=== PATIENT | female | born 2000 | race African-American/Black ===

== ENCOUNTER 2022-01-31 16:48 | Emergency (ER) | payer MEDICAID ==
[~2022-01-31] VITALS: Ht 165.1 cm; Wt 50.0 kg
[2022-01-31 16:59] VITALS: TEMP 98.9
[2022-01-31 17:58] LABS: COLLECTION METHOD CLEAN CATCH
[2022-01-31 18:01] LABS: BASO # 0.1 K/mm3 (0.0-0.2); BASO % 0.7 % (0.0-2.0); EOS # 0.2 K/mm3 (0.0-0.7); EOS % 2.8 % (0.0-4.0); GRAN # 4.2 K/mm3 (1.4-6.5); GRAN % 61.6 % (42.2-75.2); HEMATOCRIT 35.6 % (37.0-47.0); HEMOGLOBIN 12.4 g/dl (12.5-16.0); LYMPH # 1.7 K/mm3 (1.2-3.4); LYMPH % 24.3 % (20.0-51.0); MEAN CELL VOLUME 91 fl (80.0-100.0); MEAN CORPUSCULAR HEMOGLOBIN 32 pg (27-31); MEAN CORPUSCULAR HGB CONC 35 g/dl (33.0-37.0); MONO # 0.7 K/mm3 (0.1-0.6); MONO % 10.5 % (1.7-9.3); PLATELET COUNT 322 K/mm3 (130-400); RED BLOOD COUNT 3.92 M/mm3 (4.10-5.30); REDCELL DISTRIBUTION WIDTH-CV 11.7 % (11.5-14.5)
[2022-01-31 18:02] LABS: URINE APPEARANCE Clear (CLEAR/HAZY); URINE COLOR Yellow (YELLOW)
[2022-01-31 18:03] LABS: PH 6.5 (5.0-8.5); URINE BLOOD 2+ (NEGATIVE); URINE GLUCOSE Negative (NEGATIVE); URINE KETONE TRACE (NEGATIVE); URINE NITRATE Negative (NEGATIVE); URINE PROTEIN(semi-quant) Negative (NEGATIVE); URINE UROBILINOGEN 0.2 E.U/dL (0.2-1.0)
[2022-01-31 18:06] LABS: MUCOUS Present (NOT PRESENT); SQUAMOUS EPITHELIAL 0-2 /hpf (0-10); URINE BACTERIA None Seen /hpf (NONE SEEN); URINE RBC 20-50 /hpf (0-2)
[2022-01-31 18:20] LABS: ALBUMIN 4.1 gm/dL (3.5-5.0); BILIRUBIN,TOTAL 0.3 mg/dL (0.2-1.2); CALCIUM 9.6 mg/dL (8.4-10.2); CREATININE, serum 0.8 mg/dL (0.57-1.11); POTASSIUM 3.9 mmol/L (3.5-4.5); TOTAL PROTEIN 7.9 gm/dL (6.2-8.1)
[2022-01-31 20:05] VITALS: BP 106/62; PULSE 97
== END 2022-01-31 20:05 | disposition home or self-care (01) ==
LOC: COL.ER 16:48
PROVIDERS: Nurse Practitioner
DX: O20.0 Threatened abortion (principal); Z3A.01 Less than 8 weeks gestation of pregnancy; Z28.310 Unvaccinated for COVID-19
CPT/HCPCS: J7030

== ENCOUNTER → 2022-02-01 | Outpatient (CLI) | payer MEDICAID | LOC: COL.RAD 08:28 | DX: O20.0 Threatened abortion (principal) ==

== ENCOUNTER 2022-10-07 16:52 | Outpatient (CLI) | payer MEDICAID ==
[~2022-10-07] VITALS: Ht 165.1 cm; Wt 65.5 kg
[~2022-10-07 16:52] MED LIST: ZOFRAN ODT4 MG PO
--- NOTE | 2022-10-07 17:10 | NUR ---
Pt arrived on unit ambulatory and with concerns for contractions. Pt reports contractions since last night with them worsening this afternoon with increased vaginal discharge but denies any vaginal bleeding and reports normal movement. EFM and toco monitors started. Vital signs WNL. SVE by this RN closed/thick/high with negative amnio-trace. Dr. Mejia on the unit and notified of pt's arrival. See physician notification for details.
[2022-10-07] MEDS ORDERED: PRENATAL (17:29)
[2022-10-07 17:45] VITALS: BP 99/64; PULSE 108; TEMP 98.8
[2022-10-07 18:15] VITALS: BP 104/61; PULSE 90
[2022-10-07 18:30] VITALS: BP 99/55; PULSE 88
[2022-10-07 18:45] VITALS: BP 101/59; PULSE 92
--- NOTE | 2022-10-07 18:45 | NUR ---
Pt taken off monitors at this time, IV removed by this RN, 2x2 and bandaid applied with slight pressure. Pt informed to go ahead and get dressed and RN will return shortly with dismissal paperwork.
--- NOTE | 2022-10-07 19:00 | NUR ---
Dismissal instructions given to pt, opportunity for questions given, pt verbalized understanding and voices no questions at this time. Pt ambulatory off unit with spouse and child at this time.
== END 2022-10-07 19:00 | disposition home or self-care (01) ==
LOC: LDRO 16:52
DX: Z34.92 Encounter for supervision of normal pregnancy, unspecified, second trimester (principal); Z3A.26 26 weeks gestation of pregnancy
CPT/HCPCS: J7120

== ENCOUNTER 2022-10-25 15:23 | Emergency (ER) | payer MEDICAID ==
[~2022-10-25] VITALS: Ht 165.1 cm; Wt 66.8 kg
[~2022-10-25 15:23] MED LIST changes: +PRENATAL
[2022-10-25 15:44] VITALS: BP 112/69; TEMP 98.7
[2022-10-25 16:07] LABS: HEMOGLOBIN 11.8 g/dl (12.5-16.0); MEAN CELL VOLUME 96 fl (80.0-100.0); MEAN CORPUSCULAR HEMOGLOBIN 33 pg (27-31); MEAN CORPUSCULAR HGB CONC 35 g/dl (33.0-37.0); MEAN PLATELET VOLUME 9.6 fl (7.4-10.4); PLATELET COUNT 210 K/mm3 (130-400); RED BLOOD COUNT 3.56 M/mm3 (4.10-5.30); REDCELL DISTRIBUTION WIDTH-CV 12.8 % (11.5-14.5)
[2022-10-25 16:09] LABS: HEMATOCRIT 34.1 % (37.0-47.0)
[2022-10-25 16:22] LABS: ALBUMIN 2.8 gm/dL (3.5-5.0); BILIRUBIN,TOTAL 0.3 mg/dL (0.2-1.2); CALCIUM 9.3 mg/dL (8.4-10.2); CREATININE, serum 0.59 mg/dL (0.57-1.11); POTASSIUM 3.9 mmol/L (3.5-4.5); TOTAL PROTEIN 7.1 gm/dL (6.2-8.1)
[2022-10-25] MEDS ORDERED: REGLAN 10MG10 MG/TAB PO (17:12)
[2022-10-25 17:19] LABS: BAND 4 % (0-10); EOSINOPHIL 2 % (0-4); LYMPHOCYTE 19 % (20.0-51.0); NEUTROPHILS 65 % (42.0-75.2); PLATELET ESTIMATE INCREASED (NORMAL)
[2022-10-25 17:28] VITALS: PULSE 82
== END 2022-10-25 17:29 | disposition home or self-care (01) ==
LOC: COL.ER 15:23
PROVIDERS: Emergency Medicine
DX: O21.2 Late vomiting of pregnancy (principal); O99.513 Diseases of the respiratory system complicating pregnancy, third trimester; R05.9 Cough, unspecified; Z3A.28 28 weeks gestation of pregnancy; Z28.310 Unvaccinated for COVID-19; Z20.822 Contact with and (suspected) exposure to COVID-19
CPT/HCPCS: J2765; J7030

== ENCOUNTER 2024-02-15 12:16 | Inpatient (IN) | payer MEDICAID ==
[2024-02-15] VITALS (16 sets, daily range): BP systolic 90–114; BP diastolic 51–544; PULSE 75–103; TEMP 98.7–99
[~2024-02-15] VITALS: Ht 165.1 cm; Wt 73.2 kg
[~2024-02-15 12:16] MED LIST changes: +MOTRIN 800800 MG/TAB PO; +PERCOCET 325 MG1 TA2 PO; +REGLAN 10MG10 MG/TAB PO
--- NOTE | 2024-02-15 12:35 | NUR ---
1235- Pt arrives on unit with spouse, Richar, ambulatory, with concerns that she was checked in the office by Dr Mejia today and her membranes were swept without her consent. She complains of spotting and contractions since the exam. Pt oriented to room and into bathroom to change into gown. Once in bed, EFM and TOCO on and adjusted to tracing. VSS. 1245- This RN sits at bedside to get more information about the exam by Dr Mejia. Pt reports she consented to the vaginal exam but then it became very "aggressive and painful". States, "it felt like she was going in and out". Pt also reports feeling Dr Durham's hand "sweeping back and forth." Pt felt the exam was excessively long and afterwards felt "violated." Pt also reports clear fluid and blood on the exam table after the exam. Pt reports that currently she had a trace of blood on her peripad and a small amount when she wiped after voiding here at the hospital. She states she had some contractions yesterday but denied them today until after vaginal exam by Dr Mejia. Pt asks if there is a way to tell if Dr Mejia stripped her membranes. This RN replies that there is not a way to confirm without asking Dr Mejia. Offered to contact Dr Mejia so they can discuss this and Pt verbalizes that she is unsure if she wants Dr Mjeia at bedside or if she wants her to care for her any further. Pt tearful, provided tissues. Pt's reports he was at bedside for exam and agrees with Pts discription of events. This RN asks if Pt would agree to allow this RN to do SVE to check dilation and see if water was broken, Pt agreed. SVE 5/80/-3, posterior, head ballotable and no fluid noted with exam. Pt tolerated well and reports this RN's exam was "nothing like hers" (Dr Mejia). Discussed plan to speak to our community living specialist, Pt agrees with plan. Pt provided water for oral hydration, call light within reach.
--- NOTE | 2024-02-15 13:57 | NUR ---
1357- Dr Mejia at nurses station where this RN, Shanique Ortiz, and Andressa Lo, RN are sitting. MD states she read my nurses note and walks towards room. This RN stops MD and states Pt does not want you at bedside. MD states she knows, she read the note but is going in to talk to her. This RN follows behind. MD sits on end of bed, rubbing Pt's belly, states she did not strip her membranes in the office. States she was too high to strip her membranes but needed to get a good check since she was 5cm. Pt and very quiet. MD discusses options for staying vs going home. Pt verbalizes that she is very hungry. MD okay with Pt having food at this time and rechecking SVE after eating. MD states she will follow Pt through delivery if she stays. MD out of room. This RN appoligizes to Pt and spouse that Dr Mejia came into room against their wishes. Pt states it was uncomfortable but gives no further concerns. Pt needs to void. This RN encourages Pt and to talk and keep me updated on their wishes for admission vs discharge. Pt verbalizes understanding.
--- NOTE | 2024-02-15 15:50 | NUR ---
Shanique Ortiz at bedside to answer questions and offer support to Pt.
[2024-02-15] MEDS ORDERED: LR & Oxytocin 500 ML IV SCH ×2 (16:15→21:30)
[2024-02-15] MEDS ORDERED: LR 1,000 ML IV SCH (16:15)
[2024-02-15 16:41] LABS: BASO % 0.3 % (0.0-2.0); EOS # 0.1 K/mm3 (0.0-0.7); EOS % 1.5 % (0.0-4.0); GRAN # 6.6 K/mm3 (1.4-6.5); GRAN % 74.3 % (42.2-75.2); LYMPH # 1.4 K/mm3 (1.2-3.4); LYMPH % 15.6 % (20.0-51.0); MEAN CELL VOLUME 86 fl (80.0-100.0); MEAN CORPUSCULAR HEMOGLOBIN 28 pg (27-31); MEAN CORPUSCULAR HGB CONC 32 g/dl (33.0-37.0); MEAN PLATELET VOLUME 10.4 fl (7.4-10.4); MONO # 0.7 K/mm3 (0.1-0.6); MONO % 7.9 % (1.7-9.3); PLATELET COUNT 241 K/mm3 (130-400); RED BLOOD COUNT 3.63 M/mm3 (4.10-5.30); REDCELL DISTRIBUTION WIDTH-CV 13.4 % (11.5-14.5)
[2024-02-15 16:50] LABS: HEMATOCRIT 31.1 % (37.0-47.0)
--- NOTE | 2024-02-15 17:15 | NUR ---
1654- Dr Diez and this RN at bedside. discusses labor process, informed consent for TOLAC, questions encouraged and answered. 1701- SVE performed by Dr Diez after verbal consent obtained. Pt tolerated well.
--- NOTE | 2024-02-15 18:40 | NUR ---
184- DR OTERO TO BEDSIDE. DISCUSSES SVE TO CHECK PROGRESS OF LABOR AND POSSIBLE AROM OF MEMBRANES. PT IS AGREEABLE WITH SVE AND IS ASSISTED OFF BIRTHING BALL AND BACK TO BED FOR EXAM. 1841- SVE BY DR OTERO /-2. STATES SHE WOULD LIKE TO BREAK PT'S WATER, BUT PT WOULD LIKE TO DISCUSS THIS WITH HER FIRST. 1844- DR OTERO DISCUSSES AROM AND POSSIBLE PITOCIN ADMINISTRATION WITH PT AND HER . QUESTIONS ANSWERED. PT IS AGREEABLE WITH ATTEMPTING AROM AT THIS TIME. 1847- DR OTERO ATTEMPTS AROM DURING CONTRACTION, BUT IS ANABLE TO GET THROUGH AMNIOTIC SAC WITHOUT CAUSING PT INCREASED DISCOMFORT. DR OTERO SUGGESTS AUGMENTATION WITH PITOCIN AT THIS TIME SINCE SHE IS UNABLE TO RUPTURE BAG OF ABDULLAHI. PT IS AGREEABLE AFTER SHE AMBULATES. 1854- WIRELESS MONITOR CONNECTED FOR EFM TRACING. PT ASSISTED UP IN BED. SHE WISHES TO AMBULATE WITH WIRELESS MONITOR PRIOR TO STARTING PITOCIN TO SEE IF SHE CAN GET HER CONTRACTIONS STRONGER AND CLOSER TOGETHER. 1899- PT UP AMBULATING IN HALLWAY. DR OTERO AT DESK AND STATES PITOCIN AUGMENTATION MAY BE STARTED PER PROTOCOL WHEN PT IS READY. 1919- PT STILL AMBULATING. 1929- PT UP IN ROOM. STATES HER CONTRACTIONS ARE MUCH CLOSER TOGETHER AND STARTING TO GET MORE PAINFUL. SHE WOULD STILL LIKE TO BE UP AMBULATING BUT IS AGREEABLE TO A BLOOD PRESSURE. PRECAUTIONS GIVEN FOR PT TO CALL OUT WITH FEELINGS OF PRESSURE OR URGE TO BEAR DOWN AND SHE VERBALIZES UNDERSTANDING.
--- NOTE | 2024-02-15 20:07 | NUR ---
2007- NURSE TO BEDSIDE. PT STILL UP AMBULATING IN ROOM. PT STATES SHE IS GETTING MORE UNCOMFORTABLE BUT DENIES PRESSURE. SHE WOULD LIKE TO CONTINUE AMBULATION ON THE WIRELESS MONITOR SHE FEELS THIS IS WORKING WELL FOR HER AT THIS TIME.
--- NOTE | 2024-02-15 20:20 | NUR ---
2019- DR OTERO CALLS AND IS UPDATED THAT PT IT UP AMBULATING ON WIRELESS MONITOR STILL. UPDATED THAT PT DOES NOT WISH PITOCIN TO START UNTIL SHE IS DONE AMBULATING AND THE PT REPORTS HER CONTRACTIONS ARE STRONGER THAN BEFORE. TOCO TRACING SHOWS CONTRACTIONS EVERY 2 MIN. PLAN IS TO RECHECK CERVIX AT 2100.
--- NOTE | 2024-02-15 20:40 | NUR ---
2039- PT WISHES TO AMBULATE IN HALLS AGAIN. NURSE ACCOMPANIES HER. DISCUSS PLAN OF CARE FOR SVE AT 2099. PT IS AGREEABLE WITH THIS. ALSO DISCUSSED SERIOUSLY CONSIDERING PITOCIN ADMINISTRATION IF PT CERVIX IS UNCHANGED AT THAT TIME. PT IS WILLING TO CONSIDER. DISCUSSED PT'S PLAN FOR EPIDURAL AND PT STATES SHE HAS AGREED TO DO THIS BUT SHE IS STILL UNSURE WHEN SHE WILL BE READY.
--- NOTE | 2024-02-15 21:05 | NUR ---
2104- PT BACK TO BED FOR EXAM. SHE GIVES CONSENT. SVE BY THIS NURSE UNCHANGED AT /-2. DISCUSS PLAN OF CARE WITH PT INCLUDING ADMINISTRATION OF PITOCIN AND EPIDURAL. PT STATES SHE IS READY TO PROCEED WITH BOTH OF THESE PLANS OF CARE. 2115- DR OTERO CALLED AND UPDATED ON PT CURRENT SVE WITH NO CHANGE AND PT AGREEING TO PITOCIN AUGMENTATION AND EPIDURAL AT THIS TIME. NO NEW ORDERS AT THIS TIME. 2117- JOSE ANGEL MAY CALLED FOR EPIDURAL.
--- NOTE | 2024-02-15 21:25 | NUR ---
2124- PITOCIN AUGMENTATION STARTED PER PROTOCOL AT 2MUNITS. PROCESS DISCUSSED WITH PT AND SHE VERBALIZES UNDERSTANDING. 2134- JOSE ANGEL MAY HERE FOR EPIDURAL PLACEMENT. PT ASSISTED TO POSITION SITTING ON EDGE OF BED. JOSE ANGEL OBTAINS VERBAL INFORMED CONSENT FOR PROCEDURE. 2140- EPIDURAL SINGLE SHOT BY JOSE ANGEL MAY. PT TOLERATED WELL. 2147- EPIDURAL PROCEDURE COMPLETE. PT ASSISTED BACK TO BED IN LEFT LATERAL POSITION. MONITORS ADJUSTED. PITOCIN AUGMENTATION NOT INCREASED DURING EPIDURAL PLACEMENT. 2199- PT REPORTS INCREASED COMFORT LEVEL. PITOCIN INFUSION INCREASED TO 4MUNITS.
[2024-02-15] MEDS ORDERED: ROPivacaine PF 0.2% 200 ML IV ONE (21:31)
[2024-02-15] MEDS ORDERED: diphenhydrAMINE 25 MG CAP PO PRN (22:15)
[2024-02-15] MEDS ORDERED: Ondansetron 4 MG/2 ML VIAL IV PRN (22:15)
[2024-02-15] MEDS ORDERED: Naloxone 0.4 MG/ML VIAL IV PRN (22:15)
[2024-02-15] MEDS ORDERED: diphenhydrAMINE 50 MG/ML 1 ML VIAL IV PRN (22:15)
[2024-02-15] MEDS ORDERED: ePHEDrine 50 MG/10 ML VIAL IV PRN (22:15)
--- NOTE | 2024-02-15 22:15 | NUR ---
2214- PITOCIN INFUSION INCREASED TO 6MUNITS. PT REPORTS HER RIGHT SIDE IS NOT COMFORTABLE HER LEFT WITH EPIDURAL. WILL TURN TO RIGHT SIDE AND USE CLERK GENERAL OFFICE BUTTON AT [address] PT IS AGREEABLE WITH THIS PLAN. 2230- PITOCIN INFUSION INCREASED TO 8MUNITS. PT REPORTS HER RIGHT SIDE IS STILL NOT COMFORTABLE HER LEFT. PT ASSISTED TO TURN TO RIGHT SIDE AND USE CLERK GENERAL OFFICE BUTTON ON EPIDURAL. PT IS TURNED TO RIGHT SIDE SHE STATES SHE FEELS A GUSH OF FLUID LIKE HER WATER BROKE. AMNITRACE POSITIVE AND CLEAR FLUID PUDDLE ON UNDER BUTT PAD. MONITORS ADJUSTED AND PEANUT BALL PLACED UNDER LEFT LEG.
--- NOTE | 2024-02-15 22:44 | NUR ---
2243- NURSE TO BEDSIDE FOR LATE DECELERATION. PT TURNED TO LEFT LATERAL AND MONITORS ADJUSTED. 2245- LR BOLUS STARTED FOR LATE DECELERATION. 2247- CONSENT OBTAINED FROM PT FOR SVE. SVE BY THIS NURSE . PRESENTING PART SEEMS MORE BALLOTTABLE WITH THIS EXAM AND THERE IS A FOREBAG OF FLUID PROTRUDING FROM CERVIX DESPITE PT HAVING SROM EARLIER. 2299- DR OTERO CALLED AND UPDATED ON EFM LATE DECELERATIONS WITH CORRECTIVE MEASURES. UPDATED ON PT SROM AT 2230 WITH CLEAR FLUID. PT IS BLOCKED AND COMFORTABLE. PITOCIN IS CURRENTLY AT 8MUNITS BUT WILL NOT BE ABLE TO GO UP DUE TO LATE DECELERATIONS. INFORMED THAT HEART RATE IS RECOVERING WITH MINIMAL TO MODERATE VARIABILITY AND INTERMITTENT LATE DECELS. TOCO PATTERN IS COUPLING THEN SPACING OUT. DR OTERO GIVES NO NEW ORDERS AT THIS TIME. 2309- NURSE TO BEDSIDE TO ADJSUT MONITORS. DIFFICULT TO MONITOR CONTINUOUSLY.
--- NOTE | 2024-02-15 23:30 | NUR ---
2330- NURSE TO BEDSIDE FOR CONTINUED LATE DECELERATIONS. PITOCIN TURNED OFF. PT TURNED TO WEDGE RIGHT POSITION AND MONITORS ADJUSTED. 0010- PT RESTING QUIETLY. 0040- NURSE TO BEDSIDE FOR CONTINUED LATE DECELERATIONS. PITOCIN STILL TURNED OFF. NURSE ATTEMPTS TO PLACE RENO CATHETER FOR BLADDER DRAINAGE AND LARGE BAG OF AMNIOTIC FLUID PROTRUDING FROM VAGINA. LARGE AMOUNT OF BLOODY SHOW ALSO PRESENT. NURSE ABLE TO GENTLY PLACE RENO CATHETER TO DRAIN BLADDER. SVE ATTEMPTED WITHOUT BREAKING BULGING BAG AND NO CERVIX IS FELT DURING EXAM. PT UPDATED ON PLAN OF CARE TO CALL DR OTERO NOW TO BREAK BULGING FOREBAG AND PROBABLY DELIVER BABY. 0049- DR OTERO CALLED AND UPDATED WITH CURRENT SVE OF COMPLETE WITH LARGE BULGING FOREBAG. DR OTERO ON HER WAY. 0105- DR OTERO TO BEDSIDE. CONSENT FOR SVE AND AROM OF BULGING FOREBAG. 0106- AROM OF BULGING FOREBAG BY DR OTERO. CLEAR FLUID NOTED. SVE BY DR OTERO /+2. DR OTERO STATES TO START PUSHING WHILE SHE CHECKS ON PT NEXT DOOR AND THEN SHE WILL BE BACK FOR DELIVERY. 0110- PT POSITIONED IN FOOTPLATES. RENO CATHETER REMOVED WITH BALLOON INTACT. PT INSTRUCTED ON PUSHING AND QUESTIONS ANSWERED. 0112- PT BEGINS COACHED PUSHING WITH CONTRACTION. PT MOVES BABY WELL ON FIRST PUSH AND IS INSTRUCTED TO STOP PUSHING TO WAIT FOR DR OTERO. 0113- DR OTERO AT BEDSIDE FOR DELIVERY. 0114- PT PUSHES WITH CONTRACTION. DR OTERO, CHINO Wiseman NURSERY RN, AND BRODERICK BOWLES RN PRESENT. 0115- SPONTANEOUS VAGINAL DELIVERY OF VIABLE FEMALE, VIGOROUS, TO MOTHER'S ABDOMEN AND CARE OF NURSERY STAFF. 0118- SPONTANEOUS DELIVERY OF PLACENTA, EXAMINED BY DR OTERO. NO REPAIR NEEDED. PITOCIN INFUSION STARTED. 0120- PERICARE PROVIDED. ICEPACK TO PERINEUM. FEET DOWN FROM FOOTPLATES AND RECOVERY STARTED.
[2024-02-16] VITALS (16 sets, daily range): BP systolic 62–182; BP diastolic 56–132; PULSE 71–141; TEMP 97.6–98.3
--- NOTE | 2024-02-16 01:26 | NUR ---
0126- BLOOD PRESSURE TAKEN BY MONITOR HIGH 182/132. PT IS SHAKING AFTER DELIVERY AND UNABLE TO HOLD HER ARM STILL FOR BLOOD PRESSURE CUFF. WILL RETAKE. 0135- NURSE ATTEMPTS TO RETAKE BLOOD PRESSURE, BUT PT IS STILL SHAKING TOO MUCH FOR MONITOR TO READ. WILL ATTEMPT A RETAKE. 0141- MONITOR ABLE TO READ BLOOD PRESSURE DUE TO PT SHAKING LESS AT THIS TIME. BLOOD PRESSURE NORMAL 110/73.
[2024-02-16] MEDS ORDERED: Loratadine 10 MG TAB PO PRN (01:45)
[2024-02-16] MEDS ORDERED: Witch Hazel 50% Pads Bulk TUB TP PRN (01:45)
[2024-02-16] MEDS ORDERED: Measles/Mumps/Rubella Virus Vaccine Live w Diluent 0.5 ML VIAL SQ SCH (01:45)
[2024-02-16] MEDS ORDERED: Acetaminophen 500 MG TAB PO SCH (01:45)
[2024-02-16] MEDS ORDERED: Magnes Hydrox (MOM) 80 MG/ML 30 ML CUP PO PRN (01:45)
[2024-02-16] MEDS ORDERED: Naloxone 0.4 MG/ML VIAL IV PRN (01:45)
[2024-02-16] MEDS ORDERED: Mag/Al Hydrox/Simeth Susp 30 ML CUP PO PRN (01:45)
[2024-02-16] MEDS ORDERED: Ibuprofen 800 MG TAB PO SCH (01:45)
[2024-02-16] MEDS ORDERED: Phenylephrine/Mineral Oil/Petrolatum 57 GM TUBE RC PRN (01:45)
--- NOTE | 2024-02-16 04:00 | NUR ---
0400- PT REPORTS THAT HER LEFT LEG IS STILL NUMB. SHE WOULD LIKE TO GET UP TO HER ROOM SO THAT SHE CAN REST BETTER. SHE WILL CALL OUT WHEN SHE IS DONE SO SHE CAN GET UP TO BATHROOM.
--- NOTE | 2024-02-16 04:30 | NUR ---
0430- PT CALLS OUT TO GET UP TO BATHROOM AND MOVE TO . 0435- NURSE TO BEDSIDE. PT ASSISTED TO SITTING UP ON EDGE OF BED. EPIDURAL CATHETER REMOVED CHARTED. IV TO SALINE LOCK. ALYSIA LILLY USED TO GET PT UP TO BATHROOM. IN BATHROOM, PT ABLE TO VOID 700ML WITHOUT DIFFICULTY. PT PERFORMS PERICARE. NORMAL LOCHIA DISCUSSED. PT STATES SHE DOES FEEL LIGHTHEADED. COOL WASHCLOTH PROVIDED AND THIS HELPS. WHEN PT IS READY SHE IS ASSISTED BACK ON ALYSIA LILLY. SHE STATES SHE FEELS LIKE IT IS HARD TO BREATHE. O2 SPOT CHECK SHOWS OXYGEN SATURATION OF 100% AND PULSE OF 124. ENCOURAGED PT TO TAKE SOME DEEP BREATHS. 0450- PT HAS CAUGHT HER BREATH AND IS TRANSFERRED TO RM 216 WITH ALYSIA LILLY. BELONGINGS SENT WITH PT. BABY IS CURRENTLY IN NURSERY. PT ASSISTED TO BED. SHE STATES SHE FEELS BETTER WHEN SHE IS LAYING DOWN. 0500- ORAL HYDRATION PROVIDED. VITAL SIGNS CHARTED. PT STATES SHE IS FEELING BETTER, "JUST TIRED." INSTRUCTED NOT TO GET UP TO BATHROOM BY HERSELF. PLAN OF CARE FOR DISCUSSED AND QUESTIONS ANSWERED. PT ORIENTED TO ROOM AND CALL LIGHTS. PT DENIES FURTHER NEEDS AT THIS TIME.
[2024-02-16] MEDS ORDERED: Sennosides/Docusate 8.6-50 MG TAB PO SCH (08:00)
[2024-02-16] MEDS ORDERED: IBU800 M1 PO (08:59)
--- NOTE | 2024-02-16 11:30 | NUR ---
ROUNDED ON MOTHER AND WAS GOING TO GIVE MOTRIN. MOTHER IN BED ASLEEP AND FOB AWAKE ASKED IF HE WANTED ME TO WAKE HER FOR MOTRIN AND DECLINED. WILL GIVE IT WHEN MOM WAKES
[2024-02-16] MEDS ORDERED: traZODone 50 MG TAB PO PRN (21:00)
[2024-02-17 01:00] VITALS: BP 109/71; PULSE 83; TEMP 98.9
[2024-02-17 08:48] VITALS: BP 115/72; PULSE 75; TEMP 98
--- NOTE | 2024-02-17 12:05 | NUR ---
DISCHARGE INSTRUCTIONS REVIEWED WITH PT WITH EMPHASIS ON FOLLOW-UP, SELF-CARE, AND REASONS TO CALL/SEE PHYSICIAN. QUESTIONS INVITED AND ANSWERED. PT VERBALIZES UNDERSTANDING.
== END 2024-02-17 12:25 | disposition home or self-care (01) | DRG 807 ==
LOC: LDRO 12:16 → OB 16:00 → LDR 16:00 → OB 02-16 04:30
PROVIDERS: ADMIT Student in an Organized Health Care Education/Training Program
PROC: 10E0XZZ Delivery of Products of Conception, External Approach (ICD-10-PCS; principal; 2024-02-16)
DX: O34.211 Maternal care for low transverse scar from previous cesarean delivery (principal); Z37.0 Single live birth; O99.344 Other mental disorders complicating childbirth; O76 Abnormality in fetal heart rate and rhythm complicating labor and delivery; F41.9 Anxiety disorder, unspecified; Z3A.38 38 weeks gestation of pregnancy
CPT/HCPCS: J2590; J2795; J7120